=== PATIENT | female | born 1980 | race Caucasian/White ===

== ENCOUNTER 2024-11-07 07:00 | Emergency (ER) | payer OTHER ==
[~2024-11-07] VITALS: Ht 167.6 cm; Wt 102.1 kg
[2024-11-07] MEDS ORDERED: ALDACTONE25 M1 PO (07:20)
[2024-11-07] MEDS ORDERED: ATORVASTATIN CA10 M1 PO (07:20)
[2024-11-07] MEDS ORDERED: CLARITIN10 MG PO (07:21)
[2024-11-07] MEDS ORDERED: LEXAPRO20 MG PO (07:23)
== END 2024-11-07 07:53 | disposition home or self-care (01) ==
LOC: ED 07:00
DX: R04.0 Epistaxis (principal); F32.A Depression, unspecified